=== PATIENT | female | born 1970 | race Caucasian/White ===

== ENCOUNTER 2025-01-22 03:45 | Emergency (ER) | payer BC, SELFPAY ==
[2025-01-22 03:48] VITALS: BP 122/80
[2025-01-22 04:06] VITALS: BMI 26.6
[2025-01-22 04:10] VITALS: BP 113/80
[2025-01-22 04:53] LABS: % Basophils 0.4 % (0-2); % Eosinophils 0.2 % (0-6); % Immature Granulocytes 0.4 % (0-0.5); % Lymphocytes 11.4 % (20.5-51.1); % Monocytes 4.7 % (1.7-9.3); % Neutrophils 82.9 % (42.2-75.2); Absolute Lymphocytes 1.2 10^3/uL (1.2-3.4); Absolute Monocytes 0.5 10^3/uL (0.1-0.6); Absolute Neutrophils 8.7 10^3/uL (1.4-6.5); Hematocrit 40.5 % (37.0-47.0); Hemoglobin 13.7 g/dL (12.0-16.0); Mean Corp Hgb Conc. 33.8 g/dL (33.0-37.0); Mean Corpuscular Hgb 30.4 pg (27.0-31.0); Mean Platelet Volume 11.1 fL (7.4-10.4); Nucleated Red Blood Cells % 0 %; Platelet Count 218 10^3/uL (130-400); Red Cell Dist. Width 12.2 % (11.5-14.5); White Blood Cell Count 10.5 10^3/uL (4.8-10.8)
[2025-01-22 04:54] LABS: Urine Albumin Negative (Neg - Trace); Urine Bilirubin Negative (Negative); Urine Character Clear (Clear); Urine Color Yellow; Urine Glucose Negative (Negative); Urine Ketone 2+ (Negative); Urine Leukocyte 2+ (Negative); Urine Nitrite Negative (Negative); Urine Occult Blood Negative (Negative); Urine Specific Gravity 1.015 (<1.030); Urine Urobilinogen Negative (Neg - 1+)
[2025-01-22 05:00] VITALS: BP 115/63
--- NOTE | 2025-01-22 05:04 | ED.GENMED ---
History of Present Illness
<John Smith Jr., PA-C - Last Filed: 01/23/25 18:44>
General
Chief Complaint: Abdominal Pain
Source: patient and spouse
Exam Limitations: none
Time Seen by Provider: 01/22/25 03:55
Nursing documentation reviewed up to this point in time: agreed with
History of Present Illness
History of Present Illness:
54-year-old female presenting to the emergency department today with concerns of left-sided abdominal pain gradually worsening over the past 8 hours or so associated nausea no vomiting no changes in bowel movements. Denies any chest pain shortness
of breath.
Review of Systems
<John Smith Jr., PA-C - Last Filed: 01/23/25 18:44>
Review of Systems
Allergies reviewed?: Yes
All Other Systems: ROS reviewed and negative except as documented in HPI and ROS
Phy Exam
<John Smith Jr., PA-C - Last Filed: 01/23/25 18:44>
Physical Exam
Physical Exam:
GENERAL: Alert , in no apparent distress
EYE: pupils equal and reactive
NECK: Supple, no significant adenopathy.
ENT: o/p clr, mmm.
CARDIAC: Regular rate and rhythm .
LUNGS: Clear breath sounds bilaterally, no acute respiratory distress, no wheezes/rales/rhonchi
ABDOMEN: Left-sided abdominal pain otherwise soft benign abdomen
NEUROLOGICAL: Alert and oriented, no focal neuro deficits
SKIN: Warm and dry, skin intact.
MUSCULOSKELETAL: No edema, well perfused.
PSYCH: Normal and appropriate interaction.
Course
<John Smith Jr., PA-C - Last Filed: 01/23/25 18:44>
Orders/Labs/Results
Orders:
Orders
01/22/25 04:20
Electrocardiogram (*1) Stat
Reason for Study: Abdominal Pain
CT Abd/Pel (IV only)-DH only Urgent
Comment:
Reason For Exam: left sided abd pain
EKG- Treatment ONCE
Ketorolac [Toradol] 15 mg IV NOW STA
01/22/25 04:43
Complete Blood Count/With Diff Urgent
Comprehensive Metabolic Panel Urgent
Lipase Urgent
01/22/25 04:45
Urinalysis Reflex To Culture Urgent
Date Specimen was Collected: 01/22/25
Time Specimen was Collected: 04:42
Urine Microscopic Reflex Cult Urgent
Urine Culture Urgent
ELOISE Source: U
Specimen Description:
Date Specimen was Collected: 01/22/25
Time Specimen was Collected: 04:42
01/22/25 06:03
US Abdomen Complete/Upper Urgent
Comment:
Reason For Exam: upper abd pain abnromal CT
01/22/25 07:18
Troponin I Urgent
Abnormal Lab Results
01/22/25 01/22/25
04:43 04:45
MPV 11.1 H fL
(7.4-10.4)
Absolute Neuts (auto) 8.7 H 10^3/uL
(1.4-6.5)
Neutrophils % 82.9 H %
(42.2-75.2)
Lymphocytes % 11.4 L %
(20.5-51.1)
Urine Ketones 2+ A
(Negative)
Leukocyte Esterase Rfl 2+ A
(Negative)
Urine Bacteria (Reflex) Few A
(Negative)
01/22/25 04:43
01/22/25 04:43
Vital Signs
Initial and Last Documented VS:
Initial Vital Signs
Temp Pulse Resp BP Pulse Ox
98.0 F 97 18 122/80 99
01/22/25 03:48 01/22/25 03:48 01/22/25 03:48 01/22/25 03:48 01/22/25 03:48
Last Documented Vital Signs
Temp Pulse Resp BP Pulse Ox
98.0 F 88 20 126/74 96
01/22/25 03:48 01/22/25 08:00 01/22/25 08:00 01/22/25 08:11 01/22/25 07:45
<Cristi Nathan PA-C - Last Filed: 01/22/25 09:52>
Orders/Labs/Results
Orders:
Orders
01/22/25 04:20
Electrocardiogram (*1) Stat
Reason for Study: Abdominal Pain
CT Abd/Pel (IV only)-DH only Urgent
Comment:
Reason For Exam: left sided abd pain
EKG- Treatment ONCE
Ketorolac [Toradol] 15 mg IV NOW STA
01/22/25 04:43
Complete Blood Count/With Diff Urgent
Comprehensive Metabolic Panel Urgent
Lipase Urgent
01/22/25 04:45
Urinalysis Reflex To Culture Urgent
Date Specimen was Collected: 01/22/25
Time Specimen was Collected: 04:42
Urine Microscopic Reflex Cult Urgent
Urine Culture Urgent
ELOISE Source: U
Specimen Description:
Date Specimen was Collected: 01/22/25
Time Specimen was Collected: 04:42
01/22/25 06:03
US Abdomen Complete/Upper Urgent
Comment:
Reason For Exam: upper abd pain abnromal CT
01/22/25 07:18
Troponin I Urgent
Abnormal Lab Results
01/22/25 01/22/25
04:43 04:45
MPV 11.1 H fL
(7.4-10.4)
Absolute Neuts (auto) 8.7 H 10^3/uL
(1.4-6.5)
Neutrophils % 82.9 H %
(42.2-75.2)
Lymphocytes % 11.4 L %
(20.5-51.1)
Urine Ketones 2+ A
(Negative)
Leukocyte Esterase Rfl 2+ A
(Negative)
Urine Bacteria (Reflex) Few A
(Negative)
01/22/25 04:43
01/22/25 04:43
Vital Signs
Initial and Last Documented VS:
Initial Vital Signs
Temp Pulse Resp BP Pulse Ox
98.0 F 97 18 122/80 99
01/22/25 03:48 01/22/25 03:48 01/22/25 03:48 01/22/25 03:48 01/22/25 03:48
Last Documented Vital Signs
Temp Pulse Resp BP Pulse Ox
98.0 F 88 20 126/74 96
01/22/25 03:48 01/22/25 08:00 01/22/25 08:00 01/22/25 08:11 01/22/25 07:45
<John Smith Jr., PA-C - Last Filed: 01/23/25 18:44>
MDM/Problems Addressed
MDM/Problems Addressed:
54-year-old female presenting to the emergency department with concerns of left-sided abdominal pain over the past 8 hours or so. Associated nausea no vomiting. Reproducible pain on examination. Labs obtained without acute abnormalities.
Ultrasound with questionable biliary area. Concerning this patient had some CT ordered for further assessment. CT pending when care transition.
<Cristi Nathan PA-C - Last Filed: 01/22/25 09:52>
*Radiology
Radiology exam reviewed: radiology read reviewed
*Critical Care Note
Total Time (30-74mins, 75-104mins- exclusive of procedures): Not Applicable
<Cristi Nathan PA-C - Last Filed: 01/22/25 09:52>
Comment
Comment:
6:50 AM: Patient was received in signout pending ultrasound results and reevaluation. Ultrasound shows no acute abnormality. Both imaging studies were again reviewed with the patient. She does note she is feeling a little bit better although
still having some of the discomfort in her left upper quadrant. She has a nonischemic EKG. I did add on a troponin to ensure no cardiac cause given her somewhat continued symptoms. As long as this is unremarkable patient will be stable for
discharge and patient does feel comfortable being discharged home. I did offer additional GI medications however patient declines.
Patient Management
Escalation/DeEscalation of care consider admission/obs:
Patient's troponin is negative. She continues to decline any further medications and states she feels comfortable being discharged home. Aware of return precautions
ED Attending Note
<John Smith Jr., PA-C - Last Filed: 01/23/25 18:44>
-
Portions of this chart may have been created with voice recognition software.� Occasional wrong word or��sound alike� substitutions may have occurred due to the inherent limitations of voice recognition software.
Discharge Plan
Departure
Patient Disposition: Home (Routine Discharge)
Date of Disposition: 01/22/25
Time of Disposition: 07:53
Patient with high blood pressure during this ER visit?: No
Discharge Problem:
Abdominal pain
Instructions: Abdominal Pain
Prescriptions:
No Action
No Current Medications
0
Referrals:
Lashay Martinez PA-C [Family Provider] -
Interventions
Interventions:
*Risk Screen - Suicide Last Done: 01/22/25 03:48
*General Assessment Last Done: 01/22/25 04:28
*Neglect/Abuse Screening Last Done: 01/22/25 03:48
*ED- Fall Risk Assessment Last Done: 01/22/25 03:48
*ED COVID-19 Vaccine History Last Done: 01/22/25 03:48
*Nursing Disposition Last Done: 01/22/25 08:11
[id number]-[id number]-[id number] Assessment Last Done: 01/22/25 04:06
Discharge Date and Time
Discharge Date/Time: 01/22/25 08:12
Print Language: ALBANIAN
[2025-01-22 05:19] LABS: ALT (SGPT) 20 U/L (0-35); AST (SGOT) 24 U/L (14-36); Albumin 4.4 g/dl (3.5-5.0); Alkaline Phosphatase 111 U/L (38-126); Blood Urea Nitrogen 17 mg/dl (7-17); Calcium 9.7 mg/dl (8.4-10.2); Carbon Dioxide 26 mmol/L (22-30); Chloride 106 mmol/L (98-107); Estimated Creatinine Clearance 70 ml/min; Glucose 96 mg/dl (70-99); Lipase 54 U/L (23-300); Potassium 4.1 mmol/L (3.5-5.1); Sodium 141 mmol/L (135-145); Total Bilirubin 0.8 mg/dl (0.2-1.3); Total Protein 7.4 g/dl (6.3-8.2); eGFR > 60.00
[2025-01-22 05:28] LABS: Urine Bacteria Few (Negative)
[2025-01-22 05:30] LABS: Urine Red Blood Cell 0-2 /HPF (0-2); Urine Squamous Cell 21-25 /LPF (Few)
[2025-01-22 07:51] LABS: Troponin I < 0.012 ng/ml
[2025-01-22 08:11] VITALS: BP 126/74
== END 2025-01-22 08:12 | disposition home or self-care (01) ==
LOC: EMR 03:45
PROVIDERS: Physician Assistant; Physician Assistant Medical; EMERGENCY PHYSICIAN Student in an Organized Health Care Education/Training Program; FAMILY PHYSICIAN Physician Assistant Medical
DX: R10.9 Unspecified abdominal pain (principal)
CPT/HCPCS: 99284; 96374; 74177; 76700; 80053; 81003; 81015; 83690; 84484; 85025; 87086; 93005; Q9967